=== PATIENT | male | born 1950 | race Caucasian/White ===

== ENCOUNTER → 2017-04-28 | Outpatient (CLI) | payer MEDICARE ==
[2017-04-28 16:14] LABS: Anisocytosis Slight; CH 29.4; CHCM 33.1; HCT 36.8 % (39.0-53.0); HDW 3.12; HGB 12.8 gm/dL (13.0-17.5); MCH 31.1 pg (25.0-35.0); MCHC 34.8 g/dL (31.0-37.0); MCV 89.5 fL (80.0-100.0); Mean Platelet Volume 6.8; RBC 4.11 m/uL (4.30-5.90); RDW 16.1 % (11.5-15.5); WBC 9.2 k/uL (3.8-10.6)
[2017-04-28 16:35] LABS: RBC, Body Fluid 20200 /uL
[2017-04-28 20:01] LABS: Erythrocyte Sedimentation Rate 56 mm/hr (0-15)
[2017-04-29 15:12] LABS: Synovial Crystal Source Left Knee
== END | disposition home or self-care (01) ==
LOC: LABWHC1 15:44
PROVIDERS: ATTEND Orthopaedic Surgery Sports Medicine
DX: M17.12 Unilateral primary osteoarthritis, left knee (principal); Z96.652 Presence of left artificial knee joint
CPT/HCPCS: 36415; 83520; 85027; 85652; 86140; 87070; 87077; 87186; 87205; 89050; 89060